=== PATIENT | female | born 1955 | race Caucasian/White ===

== ENCOUNTER → 2018-01-22 13:14 | Outpatient (CLI) | payer OTHER, SELFPAY ==
--- NOTE | 2018-01-22 13:17 | BI_ITS ---
MAMMOGRAPHY - BILATERAL SCREENING REASON FOR EXAM: Female, 62 years old. Routine annual screening examination. PERTINENT HISTORY: Non-contributory. TECHNIQUE: Digital bilateral breast jessica (3D mammographic acquisition) in the CC and MLO projections. 2-D mediolateral oblique (MLO) and craniocaudad (CC) views of both breasts were obtained. CAD: Full Field Digital Mammography with Computer Added Detection was performed. COMPARISON: Comparison is made with prior study dated January 04, 2017 and December 24, 2014. FINDINGS: Breast Composition: There are scattered areas of fibroglandular density. There are no dominant masses or suspicious calcifications. No other significant abnormalities are identified. There has been no significant change since the prior study. BI/SCREENING MAMM (CAD), BILAT IMPRESSION: Stable bilateral screening mammogram. Yearly follow-up mammogram recommended. (A) ASSESSMENT CATEGORY: BIRADS Category 1: Negative. A letter regarding these results will be sent to the patient by the facility within 30 days. Approximately 10% of breast cancers are not detected by mammography. A normal mammogram should not delay biopsy of a clinically suspicious abnormality. [id number] Electronically Signed: Antonio Crowell MD at 11:22 EDT Tel [phone], Service support ,
== END ==
PROVIDERS: Family Provider Family Medicine; PCP Family Medicine; Visit Provider Nurse Practitioner Adult Health
DX: Z12.31 Encounter for screening mammogram for malignant neoplasm of breast (principal)
CPT/HCPCS: 77063; 77067

== ENCOUNTER → 2019-01-09 09:33 | Outpatient (CLI) | payer OTHER, SELFPAY ==
[2019-01-09 12:53] LABS: Anion Gap 7 (5-15); BUN 11 mg/dL (7-18); Calcium,Total 8.6 mg/dL (8.5-10.1); Chloride 108 mmol/L (98-107); Cholesterol 196 mg/dL (200); Creatinine, Serum 0.74 mg/dL (0.55-1.02); EST Glomerular Filtration Rate 85 mL/min (>60); Est Glom Filt Rate - Afr Amer 103 mL/min (>60); Glucose 81 mg/dL (74-106); High Density Lipoprotein 85 mg/dL; Potassium 4.1 mmol/L (3.5-5.1); Sodium Level 142 mmol/L (136-145); Triglycerides 58 mg/dL; Very Low Density Lipoprotein 12 mg/dL (5-40)
== END ==
PROVIDERS: Family Provider Family Medicine; PCP Family Medicine; Referring Provider Family Medicine; Visit Provider Nurse Practitioner Adult Health
DX: Z13.1 Encounter for screening for diabetes mellitus (principal); Z13.220 Encounter for screening for lipoid disorders
CPT/HCPCS: 36415; 80048; 80061

== ENCOUNTER → 2019-02-04 07:30 | Outpatient (CLI) | payer OTHER, SELFPAY ==
--- NOTE | 2019-02-04 07:33 | BI_ITS ---
MAMMOGRAPHY - BILATERAL SCREENING 3-D TOMOSYNTHESIS REASON FOR EXAM: Female, 63 years old. Bilateral Screening 3-D tomosynthesis PERTINENT HISTORY: No significant family history. TECHNIQUE: 2-D mammograms and 3-D Tomosynthesis of the breast (s) were performed. CAD was performed. COMPARISON: January 22, 2018, January 04, 2017 FINDINGS: The breast composition is almost entirely fat. Scattered benign calcifications are seen. No dense spiculated masses or suspicious microcalcifications are identified. No architectural distortion is identified. There is no skin thickening or retraction. There has been no significant change since the prior study. BI/SCREEN MAMM (CAD) W/CASSI BILAT IMPRESSION: No mammographic signs of malignancy. Routine yearly mammograms recommended. ASSESSMENT CATEGORY: BIRADS Category 1: Negative. A letter regarding these results will be sent to the patient by the facility within 30 days. FOLLOW UP RECOMMENDATION: Yearly follow up mammogram recommended. (A) Approximately 10% of breast cancers are not detected by mammography. A normal mammogram should not delay biopsy of a clinically suspicious abnormality. Electronically Signed: Speedy Manning MD at 11:00 EDT , Service support ,
== END ==
PROVIDERS: Family Provider Family Medicine; PCP Family Medicine; Referring Provider Nurse Practitioner Adult Health; Visit Provider Nurse Practitioner Adult Health
DX: Z12.31 Encounter for screening mammogram for malignant neoplasm of breast (principal)
CPT/HCPCS: 77063; 77067

== ENCOUNTER → 2020-02-19 07:27 | Outpatient (CLI) | payer OTHER, SELFPAY ==
--- NOTE | 2020-02-19 07:31 | BI_ITS ---
MAMMOGRAPHY - BILATERAL SCREENING REASON FOR EXAM: Female, 64 years old. Routine annual screening examination. PERTINENT HISTORY: Non-contributory. TECHNIQUE: Digital bilateral breast cassi (3D mammographic acquisition) in the CC and MLO projections. 2-D mediolateral oblique (MLO) and craniocaudad (CC) views of both breasts were obtained. CAD: Full Field Digital Mammography with Computer Added Detection was performed. COMPARISON: Comparison is made with prior study dated February 04, 2019 and January 22, 2018. FINDINGS: Breast Composition: The breasts are almost entirely fatty. There are no dominant masses or suspicious calcifications. Stable small benign-appearing bilateral axillary lymph nodes. No other significant abnormalities are identified. There has been no significant change since the prior study. BI/SCREEN MAMM (CAD) W/CASSI BILAT IMPRESSION: Stable bilateral screening mammogram. Yearly follow-up mammogram recommended. (A) ASSESSMENT CATEGORY: BIRADS Category 2: Benign. A letter regarding these results will be sent to the patient by the facility within 30 days. Approximately 10% of breast cancers are not detected by mammography. A normal mammogram should not delay biopsy of a clinically suspicious abnormality. [id number] Electronically Signed: Antonio Crowell, at 8:29 EDT , Service support ,
== END ==
PROVIDERS: PCP Family Medicine; Visit Provider Family Medicine
DX: Z12.31 Encounter for screening mammogram for malignant neoplasm of breast (principal)
CPT/HCPCS: 77063; 77067

== ENCOUNTER → 2021-03-07 15:48 | Outpatient (CLI) | payer MEDICARE, SELFPAY ==
--- NOTE | 2021-03-07 16:00 | BD_ITS ---
STUDY: DUAL ENERGY X-RAY ABSORPTIOMETRY / DXA REASON FOR EXAM: Female, 65 years old. Z78.0. Patient is postmenopausal. TECHNIQUE: Bone Mineral Density (BMD) measurements of lumbar spine and bilateral hips were obtained. COMPARISON: Comparison is made with prior examination dated 08/30/2011. FINDINGS: Lumbar Spine (L1-L4): g/cm2 (0.807) / T-score (-2.2) / Z-score (-0.4) Findings are suggestive of osteopenia with a high fracture risk. Left Femur Total: g/cm2 (0.843) / T-score (-0.8) / Z-score (0.4) Left Femoral Neck: g/cm2 (0.600) / T-score (-2.2) / Z-score (-0.7) Right Femur Total: g/cm2 (0.778) / T-score (-1.3) / Z-score (-0.1) Right Femoral Neck: g/cm2 (0.600) / T-score (-2.2) / Z-score (-0.7) The T-Scores on the most recent prior examination were: Lumbar Spine (L1-L4): There has been worsening of bone density since the previous examination. Left Femur Total: which represents a worsening of 5.1%. Right Femur Total: which represents a worsening of 6.7%. BD/Dexa Bone Density Study IMPRESSION: The patient is considered as outlined below according to World Som Organization (WHO) criteria with a high fracture risk. There has been worsening of bone density since the previous examination. Reference Information: The T-score is the number of standard deviations above or below the standard which is normal for young adults at their peak bone mineral density. The World Health Organization (WHO) interprets the T-scores as follows: Above -1 Normal bone density Between -1 and -2.5 Osteopenia Equal to / or below -2.5 Osteoporosis As a practical clinical guideline, osteopenia may be graded as follows: Mild -1 through -1.5 Moderate -1.6 through -2.0 Severe -2.1 through -2.4 The Z-score is the number of standard deviations above or below age-matched controls. A Z-score of less than -1.5 would be considered abnormal. References: 1. NIH Osteoporosis and Related Bone Diseases www osteo.org 2. International Society for Clinical Densitometry www iscd.org 3. National Osteoporosis Foundation www nof.org Electronically Signed: Antonio Crowell MD at 21:51 EDT , Service support ,
--- NOTE | 2021-03-07 16:16 | BI_ITS ---
MAMMOGRAPHY - BILATERAL SCREENING REASON FOR EXAM: Female, 65 years old. Routine annual screening examination. PERTINENT HISTORY: Non-contributory. TECHNIQUE: Digital bilateral breast cassi (3D mammographic acquisition) in the CC and MLO projections. 2-D mediolateral oblique (MLO) and craniocaudad (CC) views of both breasts were obtained. CAD: Full Field Digital Mammography with Computer Added Detection was performed. COMPARISON: Comparison is made with prior study dated 02/19/2020 and 02/04/2019 FINDINGS: Breast Composition: The breasts are almost entirely fatty. There are no dominant masses or suspicious calcifications. No other significant abnormalities are identified. There has been no significant change since the prior study. BI/SCRN MAMM (CAD)W/CASSI BILAT IMPRESSION: Stable bilateral screening mammogram. Yearly follow-up mammogram recommended. (A) ASSESSMENT CATEGORY: BIRADS Category 1: Negative. A letter regarding these results will be sent to the patient by the facility within 30 days. Approximately 10% of breast cancers are not detected by mammography. A normal mammogram should not delay biopsy of a clinically suspicious abnormality. [id number] Electronically Signed: Antonio Crowell MD at 8:04 EDT , Service support ,
== END ==
PROVIDERS: PCP Family Medicine; Referring Provider Family Medicine; Visit Provider Family Medicine
DX: Z12.31 Encounter for screening mammogram for malignant neoplasm of breast (principal); Z78.0 Asymptomatic menopausal state
CPT/HCPCS: 77063; 77067; 77080

== ENCOUNTER → 2021-03-22 08:59 | Outpatient (CLI) | payer MEDICARE, SELFPAY ==
[2021-03-22 10:54] LABS: AST(SGOT) 16 U/L (15-37); Alanine Aminotransfer ALT/SGPT 31 U/L (13-56); Albumin, Serum 3.6 g/dL (3.2-5.0); Alkaline Phosphatase 78 U/L (45-117); Anion Gap 6 (5-15); BUN 11 mg/dL (7-18); BUN/Creat Ratio 14.7 RATIO (10-20); Calcium,Total 8.9 mg/dL (8.5-10.1); Chloride 111 mmol/L (98-107); Creatinine, Serum 0.75 mg/dL (0.55-1.02); EST Glomerular Filtration Rate 83 mL/min (>60); Est Glom Filt Rate - Afr Amer 100 mL/min (>60); Globulin 3.6 g/dL (2.2-4.2); Glucose 87 mg/dL (74-106); Potassium 4.1 mmol/L (3.5-5.1); Protein, Total 7.2 g/dL (6.4-8.2); Sodium Level 143 mmol/L (136-145)
[2021-03-22 11:28] LABS: Vitamin D,25 Hydroxy 59.9 ng/mL
== END ==
PROVIDERS: PCP Family Medicine; Referring Provider Family Medicine; Visit Provider Family Medicine
DX: M85.80 Other specified disorders of bone density and structure, unspecified site (principal)
CPT/HCPCS: 36415; 80053; 82306

== ENCOUNTER → 2022-02-15 | Outpatient (CLI) | payer MEDICARE, SELFPAY ==
[2022-02-15 10:20] LABS: Anion Gap 3 (5-15); BUN 11 mg/dL (7-18); BUN/Creat Ratio 13.7 RATIO (10-20); Calcium,Total 9.2 mg/dL (8.5-10.1); Chloride 112 mmol/L (98-107); EST Glomerular Filtration Rate 76 mL/min (>60); Est Glom Filt Rate - Afr Amer 92 mL/min (>60); Glucose 96 mg/dL (74-106); Potassium 4.3 mmol/L (3.5-5.1); Sodium Level 143 mmol/L (136-145)
== END | disposition home or self-care (01) ==
LOC: MFPLAB 08:52
PROVIDERS: Nurse Practitioner Family; PCP Family Medicine; Visit Provider Family Medicine
DX: Z13.1 Encounter for screening for diabetes mellitus (principal)
CPT/HCPCS: 80048

== ENCOUNTER → 2022-03-09 | Outpatient (CLI) | payer MEDICARE, SELFPAY ==
--- NOTE | 2022-03-09 08:36 | BI_ITS ---
MAMMOGRAPHY - BILATERAL SCREENING REASON FOR EXAM: Female, 66 years old. Routine annual screening examination. PERTINENT HISTORY: Non-contributory. TECHNIQUE: Digital bilateral breast cassi (3D mammographic acquisition) in the CC and MLO projections. 2-D mediolateral oblique (MLO) and craniocaudad (CC) views of both breasts were obtained. CAD: Full Field Digital Mammography with Computer Added Detection was performed. COMPARISON: Comparison is made with prior study dated 03/07/2021 and 02/19/2020. FINDINGS: Breast Composition: The breasts are almost entirely fatty. There are no dominant masses or suspicious calcifications. Stable small benign-appearing bilateral axillary lymph nodes. No other significant abnormalities are identified. There has been no significant change since the prior study. BI/SCRN MAMM (CAD)W/CASSI BILAT IMPRESSION: Stable bilateral screening mammogram. Yearly follow-up mammogram recommended. (A) ASSESSMENT CATEGORY: BIRADS Category 2: Benign. A letter regarding these results will be sent to the patient by the facility within 30 days. Approximately 10% of breast cancers are not detected by mammography. A normal mammogram should not delay biopsy of a clinically suspicious abnormality. [id number] Electronically Signed: Antonio Crowell MD at 10:25 EDT ,
== END | disposition home or self-care (01) ==
LOC: OPBI 08:35
PROVIDERS: PCP Family Medicine; Visit Provider Nurse Practitioner Family
DX: Z12.31 Encounter for screening mammogram for malignant neoplasm of breast (principal)
CPT/HCPCS: 77063; 77067

== ENCOUNTER → 2023-04-11 | Outpatient (CLI) | payer MEDICARE, OTHER, SELFPAY ==
[2023-04-11 12:04] LABS: Absolute Lymphocyte Count 1.28 X10^3/uL (0.83-4.51); Absolute Neutrophil Count 2.1 X10^3/uL (2.0-7.7); Basophil# 0.02 X10^3/uL; Basophil% 0.5 % (0-1); Eosinophil# 0.12 X10^3/uL; Eosinophils% 3.1 % (0-5); Hematocrit 46.1 % (37-47); Hemoglobin 14.9 g/dL (12.0-15.0); Lymphocyte # 1.28 X10^3/ul (0.83-4.51); Lymphocyte % 33.5 % (19-41); Mean Corp Hgb Conc 32.3 g/dL (32-36); Mean Corpuscular Hgb 29.9 pg (27.0-32.0); Mean Corpuscular Volume 92.6 fL (81-99); Mean Platelet Vol. 8.9 fl (6.2-12.0); Monocyte% 7.9 % (0-10); NRBC Flagged by Analyzer 0 % (0-5); Neutrophil # 2.09 X10^3/uL (2.7-7.7); Neutrophil % 54.7 % (47-70); Platelet Count 230 K/mm3 (150-450); RBC Distribution Width CV 13.4 % (11.6-14.6); RBC Distribution Width SD 45.9 fl (35.1-43.9); Red Blood Count 4.98 M/mm3 (4.2-5.4); White Blood Count 3.8 K/mm3 (4.4-11.0)
[2023-04-11 12:28] LABS: AST(SGOT) 14 U/L (15-37); Alanine Aminotransfer ALT/SGPT 22 U/L (13-56); Albumin, Serum 3.7 g/dL (3.2-5.0); Alkaline Phosphatase 83 U/L (45-117); Anion Gap 5 (5-15); BUN 12 mg/dL (7-18); BUN/Creat Ratio 15.6 RATIO (10-20); Calcium,Total 8.9 mg/dL (8.5-10.1); Chloride 111 mmol/L (98-107); Cholesterol 206 mg/dL (200); Creatinine, Serum 0.77 mg/dL (0.55-1.02); EST Glomerular Filtration Rate 80 mL/min (>60); Est Glom Filt Rate - Afr Amer 97 mL/min (>60); Globulin 3.7 g/dL (2.2-4.2); Glucose 87 mg/dL (74-106); High Density Lipoprotein 73 mg/dL; Potassium 4.2 mmol/L (3.5-5.1); Protein, Total 7.4 g/dL (6.4-8.2); Sodium Level 141 mmol/L (136-145); T4 Free Direct 1.13 ng/dL (0.76-1.46); Thyroid Stim Hormone (TSH) 2.14 uIU/mL (0.358-3.74); Triglycerides 84 mg/dL; Very Low Density Lipoprotein 17 mg/dL (5-40)
== END | disposition home or self-care (01) ==
LOC: MTLAB 09:29
PROVIDERS: PCP Family Medicine; Visit Provider Family Medicine
DX: M85.80 Other specified disorders of bone density and structure, unspecified site (principal); E04.1 Nontoxic single thyroid nodule; E78.5 Hyperlipidemia, unspecified
CPT/HCPCS: 36415; 80053; 80061; 82306; 84439; 84443; 85025

== ENCOUNTER → 2023-04-18 | Outpatient (CLI) | payer MEDICARE, OTHER, SELFPAY ==
--- NOTE | 2023-04-18 11:34 | US_ITS ---
EXAM: US SOFT TISSUES HEAD AND NECK, THYROID CLINICAL INDICATION: NODULE TECHNIQUE: Grayscale and color doppler imaging was performed of the thyroid gland. COMPARISON: No relevant prior studies available. FINDINGS: LEFT THYROID LOBE: 1.0 cm left thyroid nodule. This nodule is solid or almost completely solid, very hypoechoic, [id number], smoothly marginated and contains punctate echogenic foci. TI-RADS points: 8. The left thyroid lobe measures 4.3 x 1.5 x 1.9 cm. 0.7 cm left thyroid nodule. This nodule is cystic or nearly completely cystic. TI-RADS points: 0. TI-RADS category: TR1. This nodule is benign and no FNA or follow-up is necessary. Additional left thyroid cysts and/or spongiform nodules are present. RIGHT THYROID LOBE: The right thyroid lobe measures 4.7 x 2.4 x 2.2 cm. Right thyroid nodule measuring 2.3 cm. This nodule is solid or almost completely solid, hypoechoic, [id number], smoothly marginated and contains no echogenic foci. TI-RADS points: 4. Posterior right thyroid nodule measuring 0.7 cm. This nodule is mixed cystic and solid, hypoechoic, [id number], smoothly marginated and contains no echogenic foci. TI-RADS points: 3. Additional right thyroid cysts and/or spongiform nodules are present. ISTHMUS: The thyroid isthmus measures 0.3 cm. No thyroid nodules are present. US/Thyroid IMPRESSION: 1. Left thyroid nodule measuring 1 cm. TI-RADS category: TR5. This nodule is highly suspicious. Recommend FNA evaluation. 2. Right thyroid nodule measuring 2.3 cm. TI-RADS category: TR4. This nodule is moderately suspicious. Recommend FNA evaluation. 3. Right thyroid nodule measuring 0.7 cm. TI-RADS category: TR3. This nodule is mildly suspicious but no FNA or follow-up is necessary given the small size of this nodule. Electronically Signed: Raphael Sullivan DO at 22:51 EDT ,
== END | disposition home or self-care (01) ==
LOC: US 11:33
PROVIDERS: PCP Family Medicine; Referring Provider Family Medicine; Visit Provider Family Medicine
DX: E04.1 Nontoxic single thyroid nodule (principal)
CPT/HCPCS: 76536

== ENCOUNTER → 2023-04-25 | Outpatient (CLI) | payer MEDICARE, OTHER, SELFPAY ==
--- NOTE | 2023-04-25 15:11 | BI_ITS ---
MAMMOGRAPHY - BILATERAL SCREENING REASON FOR EXAM: Female, 67 years old. Routine annual screening examination. PERTINENT HISTORY: Non-contributory. TECHNIQUE: Digital bilateral breast cassi (3D mammographic acquisition) in the CC and MLO projections. 2-D mediolateral oblique (MLO) and craniocaudad (CC) views of both breasts were obtained. CAD: Full Field Digital Mammography with Computer Added Detection was performed. COMPARISON: Comparison is made with prior study March 09, 2022 and March 07, 2021. FINDINGS: Breast Composition: The breasts are almost entirely fatty. There are no dominant masses or suspicious calcifications. No other significant abnormalities are identified. There has been no significant change since the prior study. BI/SCRN MAMM (CAD)W/CASSI BILAT IMPRESSION: Stable bilateral screening mammogram. Yearly follow-up mammogram recommended. (A) ASSESSMENT CATEGORY: BIRADS Category 1: Negative. A letter regarding these results will be sent to the patient by the facility within 30 days. Approximately 10% of breast cancers are not detected by mammography. A normal mammogram should not delay biopsy of a clinically suspicious abnormality. [id number] Electronically Signed: Antonio Crowell MD at 8:43 EDT ,
--- NOTE | 2023-04-25 15:18 | BD_ITS ---
STUDY: DUAL ENERGY X-RAY ABSORPTIOMETRY / DXA REASON FOR EXAM: Female, 67 years old. [id number] TECHNIQUE: Bone Mineral Density (BMD) measurements of lumbar spine and bilateral hips were obtained. COMPARISON: Comparison is made with prior study dated March 07, 2021. FINDINGS: Lumbar Spine (L1-L4): g/cm2 (0.815) / T-score (-2.1) / Z-score (-0.2) Findings are suggestive of osteopenia with a high fracture risk. Left Femur Total: g/cm2 (0.800) / T-score (-1.2) / Z-score (0.2) Left Femoral Neck: g/cm2 (0.584) / T-score (-2.4) / Z-score (-0.7) Right Femur Total: g/cm2 (0.768) / T-score (-1.4) / Z-score (-0.1) Right Femoral Neck: g/cm2 (0.576) / T-score (-2.5) / Z-score (-0.8) The T-Scores on the most recent prior examination were: Lumbar Spine (L1-L4): There has been improvement of bone density since the previous examination. Left Femur Total: which represents a worsening of 5.1%. Right Femur Total: which represents a worsening of 1.2%. BD/Dexa Bone Density Study IMPRESSION: The patient is considered osteopenic as outlined below according to World Som Organization (WHO) criteria with a high fracture risk. There has been worsening of bone density since the previous examination. Reference Information: The T-score is the number of standard deviations above or below the standard which is normal for young adults at their peak bone mineral density. The World Health Organization (WHO) interprets the T-scores as follows: Above -1 Normal bone density Between -1 and -2.5 Osteopenia Equal to / or below -2.5 Osteoporosis As a practical clinical guideline, osteopenia may be graded as follows: Mild -1 through -1.5 Moderate -1.6 through -2.0 Severe -2.1 through -2.4 The Z-score is the number of standard deviations above or below age-matched controls. A Z-score of less than -1.5 would be considered abnormal. References: 1. NIH Osteoporosis and Related Bone Diseases www osteo.org 2. International Society for Clinical Densitometry www iscd.org 3. National Osteoporosis Foundation www nof.org Electronically Signed: Antonio Crowell MD at 14:05 EDT ,
== END | disposition home or self-care (01) ==
LOC: OPBD 15:10
PROVIDERS: PCP Family Medicine; Referring Provider Family Medicine; Visit Provider Family Medicine
DX: Z12.31 Encounter for screening mammogram for malignant neoplasm of breast (principal); Z78.0 Asymptomatic menopausal state
CPT/HCPCS: 77063; 77067; 77080

== ENCOUNTER → 2023-05-07 | Outpatient (CLI) | payer MEDICARE, OTHER, SELFPAY ==
--- NOTE | 2023-05-07 | FLU_PTH ---
PATIENT: DEEPA FRAGOSO LOC: [facility] U#:[id number] AGE/SX: 67/F ROOM: RE05/07/[address]: Dr. Marcello Potter MD : 1955 BED: DIS: 05/07/2023 SPEC #: [id number] RECD: 05/07/23 15:00 STATUS: RISHI MARYBETH #: [id number] CITLALLI: 05/07/23 00:[address]: Marcello Potter DEPT: CYTOLOGY RECD BY: Dominick Escalante ENTERED: 05/08/23 09:14 SP TYPE: Fluid OTHR DR: Dr. Feliberto Alvarez MD Tissues: A - Thyroid gland, NOS B - Thyroid gland, NOS C - Thyroid gland, NOS D - Thyroid gland, NOS Procedures: Special Stain Group II Surgery Specimen Level IV Cytospin Fluid HEADER OPERATION: Fine needle aspiration of left and right thyroid PRE-OP DIAGNOSIS: Abnormal ultrasound TISSUE SUBMITTED: A - FNA of left thyroid fluid, B - FNA of left thyroid x10 slides, C - FNA of right thyroid fluid, D - FNA of right thyroid x12 slides DIAGNOSIS CYTOLOGY A. Left thyroid fluid, fine needle aspiration (cytospin and cell block): Negative for malignant cells. B. Left thyroid, fine needle aspiration (smears): Consistent with benign follicular/colloid nodule ([place] Category II). Adequate for evaluation. See comment. C. Right thyroid fluid, fine needle aspiration (cytospin and cell block): Negative for malignant cells. D. Right thyroid, fine needle aspiration (smears): Consistent with benign follicular/colloid nodule ([place] Category II). Adequate for evaluation. See comment. See comment. SJ:rg 05/09/2023 COMMENT Correlation with clinical, radiologic findings and appropriate follow up are necessary. The [place] System for thyroid diagnostic categorization was used in the evaluation of this case. Case has been reviewed in consultation with Dr. Gaston who concurs with the above diagnosis. IDC:AM CYTOLOGY STUDY Slides are reviewed. CYTOLOGY GROSS A - Received is 32 ml of clear fluid labeled with the patient's name and and designated per the requisition as left thyroid. Submitted for cytology preparation including cell block. B - Received are 10 smears labeled with the patient's name and designated per the requisition as left thyroid. Submitted for staining. C - Received is 30 ml of cloudy fluid labeled with the patient's name and and designated per the requisition as right thyroid. Submitted for cytology preparation including cell block. D - Received are 12 smears labeled with the patient's name and designated per the requisition as right thyroid. Submitted for staining. / lui 05/08/2023 TC:5 CPT: 59111 x4, [id number] x2
== END | disposition home or self-care (01) ==
LOC: LABSPEC 15:17
PROVIDERS: PCP Family Medicine; Referring Provider Surgery; Visit Provider Surgery
DX: R93.89 Abnormal findings on diagnostic imaging of other specified body structures (principal)
CPT/HCPCS: 88108; 88305; 88313

== ENCOUNTER → 2023-10-29 | Outpatient (CLI) | payer MEDICARE, OTHER, SELFPAY ==
[2023-10-29 10:31] LABS: Vitamin D,25 Hydroxy 54.3 ng/mL
[2023-10-29 10:34] LABS: AST(SGOT) 17 U/L (15-37); Alanine Aminotransfer ALT/SGPT 24 U/L (13-56); Albumin, Serum 3.5 g/dL (3.2-5.0); Alkaline Phosphatase 67 U/L (45-117); Anion Gap 5 (5-15); BUN 14 mg/dL (7-18); BUN/Creat Ratio 18.8 RATIO (10-20); Chloride 110 mmol/L (98-107); Creatinine, Serum 0.75 mg/dL (0.55-1.02); EST Glomerular Filtration Rate 82 mL/min (>60); Est Glom Filt Rate - Afr Amer 99 mL/min (>60); Globulin 3.6 g/dL (2.2-4.2); Glucose 91 mg/dL (74-106); Protein, Total 7.1 g/dL (6.4-8.2); Sodium Level 141 mmol/L (136-145)
== END | disposition home or self-care (01) ==
LOC: MFPLAB 09:12
PROVIDERS: PCP Family Medicine; Visit Provider Family Medicine
DX: M81.0 Age-related osteoporosis without current pathological fracture (principal)
CPT/HCPCS: 36415; 80053; 82306

== ENCOUNTER → 2024-04-24 | Outpatient (CLI) | payer MEDICARE, OTHER, SELFPAY ==
--- NOTE | 2024-04-24 13:56 | US_ITS ---
ACR Level 3 findings have been noted. An addendum which confirms receipt of the report will follow. INDICATION: nodule EXAMINATION: Ultrasound US Thyroid (eg thyroid, parathyroid, parotid) TECHNIQUE: Rosado scale and color doppler imaging was performed of the thyroid gland. COMPARISON: None. FINDINGS: RIGHT THYROID LOBE: Measures 4.9 x 2.2 x 2 cm. Homogeneous echotexture with normal vascularity. [Contains multiple nodules: - 2.2 cm hypoechoic solid nodule in the midpole -0.9 cm colloid cyst LEFT THYROID LOBE: Measures 4.3 x 1.4 x 1.8 cm. Homogeneous echotexture with normal vascularity. [Multiple nodules: -0.6 cm solid and cystic hypoechoic nodule in the superior pole -0.6 cm hypoechoic solid and cystic nodule in the superior pole 0.9 cm very hypoechoic solid nodule in the midpole with micro-calcifications. ISTHMUS: 0.1 cm. No thyroid nodules are present. US/Thyroid IMPRESSION: Multinodular goiter: -2.2 cm TI-RADS 4 nodule in the right midpole is moderately suspicious. Recommend FNA -0.6 cm TR-3 nodule in the left superior pole is mildly suspicious. Recommend follow-up ultrasound in one year. -0.6 cm TR-3 nodule in the left superior pole is mildly suspicious. Recommend follow-up ultrasound in one year. -0.9 cm TR-5 nodule is highly suspicious. Recommend FNA. Electronically Signed: Daniel Khan MD at 20:57 EDT ,
== END | disposition home or self-care (01) ==
LOC: US 13:56
PROVIDERS: PCP Family Medicine; Referring Provider Family Medicine; Visit Provider Family Medicine
DX: E04.1 Nontoxic single thyroid nodule (principal)
CPT/HCPCS: 76536

== ENCOUNTER → 2024-06-11 | Outpatient (CLI) | payer MEDICARE, OTHER, SELFPAY ==
--- NOTE | 2024-06-11 09:39 | BI_ITS ---
MAMMOGRAPHY - BILATERAL SCREENING REASON FOR EXAM: Female, 68 years old. Routine annual screening examination. PERTINENT HISTORY: Non-contributory. TECHNIQUE: Digital bilateral breast cassi (3D mammographic acquisition) in the CC and MLO projections. 2-D mediolateral oblique (MLO) and craniocaudad (CC) views of both breasts were obtained. CAD: Full Field Digital Mammography with Computer Added Detection was performed. COMPARISON: Comparison is made with prior study April 25, 2023 and March 09, 2022. FINDINGS: Breast Composition: The breasts are almost entirely fatty. There are no dominant masses or suspicious calcifications. No other significant abnormalities are identified. There has been no significant change since the prior study. BI/SCRN MAMM (CAD)W/CASSI BILAT IMPRESSION: Stable bilateral screening mammogram. Yearly follow-up mammogram recommended. (A) ASSESSMENT CATEGORY: BIRADS Category 1: Negative. A letter regarding these results will be sent to the patient by the facility within 30 days. Approximately 10% of breast cancers are not detected by mammography. A normal mammogram should not delay biopsy of a clinically suspicious abnormality. [id number] Electronically Signed: Antonio Crowell MD at 10:54 EDT ,
== END | disposition home or self-care (01) ==
LOC: OPBI 09:39
PROVIDERS: PCP Family Medicine; Referring Provider Family Medicine; Visit Provider Family Medicine
DX: Z12.31 Encounter for screening mammogram for malignant neoplasm of breast (principal)
CPT/HCPCS: 77063; 77067

== ENCOUNTER → 2025-05-05 | Outpatient (CLI) | payer MEDICARE, OTHER, SELFPAY ==
[2025-05-05 16:15] LABS: AST(SGOT) 23 U/L (<=31); Alanine Aminotransfer ALT/SGPT 35 U/L (<=34); Albumin, Serum 4.1 g/dL (3.4-4.8); Alkaline Phosphatase 58 U/L (35-104); Anion Gap 11 (5-15); BUN 12 mg/dL (4-19); BUN/Creat Ratio 15.3 RATIO (10-20); Calcium,Total 9.0 mg/dL (7.6-11.0); Carbon Dioxide 22.4 mmol/L (21.0-32.0); Chloride 107 mmol/L (98-108); Globulin 2.8 g/dL (2.2-4.2); Glucose 88 mg/dL (70-99); Potassium 4.2 mmol/L (3.3-5.1); Vitamin D,25 Hydroxy 53.8 ng/mL (30-100)
== END | disposition home or self-care (01) ==
LOC: MFPLAB 11:44
PROVIDERS: PCP Family Medicine; Visit Provider Family Medicine
DX: M81.0 Age-related osteoporosis without current pathological fracture (principal)
CPT/HCPCS: 36415; 80053; 82306

== ENCOUNTER → 2025-05-10 | Outpatient (CLI) | payer MEDICARE, OTHER, SELFPAY ==
--- OUTSIDE RECORDS SUMMARY | 2024-06-01 14:00 | XMS RPT_ITS ---
Author Name Auto Generated Organization [facility] Care Team Providers Care Alarm Adjuster Name Role Phone DAMARIS SOLANO Attending Unavailable SVEN AQUINO Referring Unavailable SVEN AQUINO Primary Care Unavailable PROBLEMS No Problem Records Found PROCEDURES No Procedure Records Found RESULTS PROGRESS Observed: 06/03/2024 12:42 PM Status: COMPLETED Source: [facility] HNO ID: [id number] Author: DAMARIS SOLANO MD Service: ? Author Type: Physician Type: Progress Notes Filed: 06/03/2024 12:55 Note Text: Subjective: Last saw the patient on 05/14/2023. She had just undergone a fine-needle aspiration of both the left and right side thyroid nodules which were completed on 05/07/2023. The pathology report came back as a benign follicular nodule and was adequate for evaluation. She presents again today with a repeat ultrasound of her thyroid gland which was completed at [place] on 04/24/2024. This showed a 2.2 cm hypoechoic nodule in the midpole on the right side and a 9 mm solid nodule on the left side with several other cystic components In 2022 the right side had a 2.3 cm solid nodule as well as a 7 mm left-sided thyroid nodule. Patient is not experiencing any neck pain night sweats or difficulty talking. Objective:Blood pressure 128/90, pulse 115, temperature 36.6 ?C (97.9 ?F), resp. rate 18, height 157.5 cm (5' 2), weight 86.8 kg (191 lb 6.4 oz), last menstrual period 02/15/2007, SpO2 95%. Neck is supple no hard palpable nodules are identified no carotid bruits no lymphadenopathy. Assessment:Multinodular goiter (primary encounter diagnosis) Plan: At this point I do not think any further fine-needle aspirations need to be done repeat thyroid ultrasounds would be sufficient. CNOV Observed: 06/01/2024 2:00 PM Status: COMPLETED Source: [facility] Office Visit (GENSWS) RICHMONDDEEPA Rigo ([id number]) 1955 F Date Time Provider Department 06/01/24 2:00 PM DAMARIS SOLANO GENSWS During your visit today, we recorded the following information about you: Temperature Pulse Respiration Blood pressure 97.9 degrees 115/minute 18/minute 128/90 Weight Height Last Period 86.8 kg 1.575 m 02/15/07 Ashlyn Jensen RN 06/01/2024 2:03 PM Signed REVIEW OF SYSTEMS: General: The patient denies fatigue, denies weight loss, denies weight gain, denies feeling hot, and denies feelings of cold. Eyes: The patient denies glaucoma, denies eye injury/surgery, wears glasses or contacts. Ear/Nose/Throat: The patient denies allergies, denies hayfever, denies ear infections, and denies bloody noses. Cardiovascular: The patient denies chest pain, denies heart disease, denies high blood pressure,denies cardiac stent, denies prior heart attack, denies irregular heart beat, denies high cholesterol, denies poor circulation, denies heart failure, other cardiac issues, denies claudication, denies cold feet, denies peripheral arterial stent. Respiratory: The patient denies tuberculosis, denies pneumonia, denies frequent cough, denies pulmonary embolism, denies shortness of breath, and denies coughing up blood. Gastrointestinal: The patient denies difficulty swallowing, denies acid reflux, denies ulcers, denies vomiting, denies jaundice/hepatitis, denies gallbladder problems, denies black or tarry stools, denies hemorrhoids, denies bleeding from rectum, denies diverticulitis, denies constipation, denies diarrhea, denies loss of stool control, and denies hernias. Kidney/Bladder: The patient denies kidney stones, denies urine infections, and denies bloody urine. Skin: The patient denies a history of skin cancer, denies bleeding/changing moles, and denies a history of skin rash. Neurologic: The patient denies a history of epilepsy/convulsions, denies headaches, denies head/spinal injuries, and denies stroke/TIA. Psychiatric: The patient denies psychiatric medications, denies depression, and denies voices, denies substance abuse. Endocrine: The patient denies thyroid disorders, denies diabetes, and denies hormonal problems. Hematologic: The patient denies a history of bruising, denies bleeding, and denies anemia, denies blood clots. Infections: The patient denies a history of measles and mumps, denies rheumatic fever, and denies sexually transmitted diseases. Musculoskeletal: The patient denies back pain/injury, denies back problems, denies sciatica, denies knee/foot trouble, denies arthritis, or denies gout. When was patient's last Mammogram screening? 2022 Last Colonoscopy: 2015 NATHEN Brown Daniel P, MD 06/03/2024 12:55 PM Signed Subjective: Last saw the patient on 05/14/2023. She had just undergone a fine-needle aspiration of both the left and right side thyroid nodules which were completed on 05/07/2023. The pathology report came back as a benign follicular nodule and was adequate for evaluation. She presents again today with a repeat ultrasound of her thyroid gland which was completed at [place] on 04/24/2024. This showed a 2.2 cm hypoechoic nodule in the midpole on the right side and a 9 mm solid nodule on the left side with several other cystic components In 2022 the right side had a 2.3 cm solid nodule as well as a 7 mm left-sided thyroid nodule. Patient is not experiencing any neck pain night sweats or difficulty talking. Objective:Blood pressure 128/90, pulse 115, temperature 36.6 ?C (97.9 ?F), resp. rate 18, height 157.5 cm (5' 2), weight 86.8 kg (191 lb 6.4 oz), last menstrual period 02/15/2007, SpO2 95%. Neck is supple no hard palpable nodules are identified no carotid bruits no lymphadenopathy. Assessment:Multinodular goiter (primary encounter diagnosis) Plan: At this point I do not think any further fine-needle aspirations need to be done repeat thyroid ultrasounds would be sufficient. Referring Provider: SVEN AQUINO [[id number]] Allergies As of Date: 06/01/2024 Noted Allergy Reaction ERYTHROMYCIN 10/14/2015 8 - GI Upset Date Reviewed: 06/01/2024 Reviewed by: Ashlyn Jensen RN - Fully Assessed Reason for Visit: Thyroid Nodules [Other] Primary Visit Diagnosis:Multinodular goiter [E04.2] Prescriptions as of 06/03/2024 - famotidine (PEPCID) 40 mg tablet Take 40 mg by mouth daily at bedtime. - alendronate (FOSAMAX) 70 mg tablet Take 70 mg by mouth one time a week. In AM with cup of water on empty stomach. Nothing else by mouth and stay upright for 30 min. - calcium carbonate/vitamin D2 ([id number]-L ORAL) Take 1 tablet by mouth once daily. - cholecalciferol (VITAMIN D3) 1,000 unit tab tablet Take 1,000 Units by mouth once daily. Problem List As Of Date: 06/01/2024 (None) Visit Notes: >> Ashlyn Jensen RN Mon Jun 01, 2024 2:02 PM Status: Signed REVIEW OF SYSTEMS: General: The patient denies fatigue, denies weight loss, denies weight gain, denies feeling hot, and denies feelings of cold. Eyes: The patient denies glaucoma, denies eye injury/surgery, wears glasses or contacts. Ear/Nose/Throat: The patient denies allergies, denies hayfever, denies ear infections, and denies bloody noses. Cardiovascular: The patient denies chest pain, denies heart disease, denies high blood pressure,denies cardiac stent, denies prior heart attack, denies irregular heart beat, denies high cholesterol, denies poor circulation, denies heart failure, other cardiac issues, denies claudication, denies cold feet, denies peripheral arterial stent. Respiratory: The patient denies tuberculosis, denies pneumonia, denies frequent cough, denies pulmonary embolism, denies shortness of breath, and denies coughing up blood. Gastrointestinal: The patient denies difficulty swallowing, denies acid reflux, denies ulcers, denies vomiting, denies jaundice/hepatitis, denies gallbladder problems, denies black or tarry stools, denies hemorrhoids, denies bleeding from rectum, denies diverticulitis, denies constipation, denies diarrhea, denies loss of stool control, and denies hernias. Kidney/Bladder: The patient denies kidney stones, denies urine infections, and denies bloody urine. Skin: The patient denies a history of skin cancer, denies bleeding/changing moles, and denies a history of skin rash. Neurologic: The patient denies a history of epilepsy/convulsions, denies headaches, denies head/spinal injuries, and denies stroke/TIA. Psychiatric: The patient denies psychiatric medications, denies depression, and denies voices, denies substance abuse. Endocrine: The patient denies thyroid disorders, denies diabetes, and denies hormonal problems. Hematologic: The patient denies a history of bruising, denies bleeding, and denies anemia, denies blood clots. Infections: The patient denies a history of measles and mumps, denies rheumatic fever, and denies sexually transmitted diseases. Musculoskeletal: The patient denies back pain/injury, denies back problems, denies sciatica, denies knee/foot trouble, denies arthritis, or denies gout. When was patient's last Mammogram screening? 2022 Last Colonoscopy: 2015 Ashlyn Jensen RN Letter Text Encounter Status:Closed by DAMARIS SOLANO on 06/03/24 ALLERGIES DATE TYPE / CODE NAME / CODE REACTION SEVERITY SOURCE 10/14/2015 DRUG/[id number](SNOM ED CT) ERYTHROMYCIN GI UPSET [facility] ENCOUNTERS ADMIT/DISCHARGE ACCOUNT NUMBER ADMITTING ENCOUNTER CLASS LOC ATION SOURCE 06/01/2024/ [id number] [facility] PAYERS ENCOUNTER GUARANTOR PAYER SUBSCRIBER SOURCE 06/01/2024 Primary Insuranc e:MEDICARE A AND BPolicy Number: [id number] Date:[id number] Name:Philip VIRAMONTESB: [id number] ANNETTE VELIZ [id number] [facility] 06/01/2024 Secondary Insura nce:[facility] AARP SUPPLEMENTPolicy Number: [id number] Date:[id number] Name:Junito GARCIA: [id number] [place] [address] [facility]
--- NOTE | 2025-05-10 12:43 | US_ITS ---
PROCEDURE: THYROID 05/10/2025 REASON FOR EXAM: Known nodules, follow-up TECHNIQUE: Procedure Code: USTHY Modality: US Procedure: THYROID COMPARISON: 04/24/2024, 04/18/2023 FINDINGS: Right thyroid lobe size: 4.1 x 2.1 x 1.8 cm Left thyroid lobe size: 4.1 x 1.5 x 1.1 cm Isthmus: 0.1 cm Background parenchymal echotexture is homogeneous. Nodules: 1. Lobe: Right, Location: Mid, Size: 2.3 x 1.9 x 1.4 cm, Stability: Stable Composition: Solid or almost completely solid (+2) Echogenicity: Hypoechoic (+2) Margin: Smooth (+0) Shape: Wider than tall (+0) Echogenic Foci: None (+0) TI-RADS: <2 = TR 1 * 2 = TR 2 * 3 = TR 3 * 4-6 = TR 4 * >6 = TR 5 2. Lobe: Right, Location: Lower, Size: 0.4 x 0.5 x 0.4 cm, Stability: Stable Composition: Cystic or mostly cystic (+0) Echogenicity: Anechoic (+0) Margin: Smooth (+0) Shape: Wider than tall (+0) Echogenic Foci: None (+0) TI-RADS: <2 = TR 1 * 2 = TR 2 * 3 = TR 3 * 4-6 = TR 4 * >6 = TR 5 3. Lobe: Left, Location: Upper, Size: 0.6 x 0.4 x 0.4 cm, Stability: Stable Composition: Mixed cystic and solid (+1) Echogenicity: Anechoic (+0) Margin: Smooth (+0) Shape: Wider than tall (+0) Echogenic Foci: None (+0) TI-RADS: <2 = TR 1 * 2 = TR 2 * 3 = TR 3 * 4-6 = TR 4 * >6 = TR 5 4. Lobe: Left, Location: Mid, Size: 0.8 x 0.5 x 0.7 cm, Stability: Stable Composition: Mixed cystic and solid (+1) Echogenicity: Hypoechoic (+2) Margin: Smooth (+0) Shape: Wider than tall (+0) Echogenic Foci: None (+0) TI-RADS: <2 = TR 1 * 2 = TR 2 * 3 = TR 3 * 4-6 = TR 4 * >6 = TR 5 5. Lobe: Left, Location: Lower, Size: 0.6 x 0.4 x 0.5 cm, Stability: Stable Composition: Mixed cystic and solid (+1) Echogenicity: Hypoechoic (+2) Margin: Smooth (+0) Shape: Wider than tall (+0) Echogenic Foci: None (+0) TI-RADS: <2 = TR 1 * 2 = TR 2 * 3 = TR 3 * 4-6 = TR 4 * >6 = TR 5 No new suspicious mass or nodule, no suspicious adenopathy US/Thyroid IMPRESSION: Stable homogeneous thyroid gland with bilateral nodules. Largest is solid, hyp oechoic and in the mid right lobe which should undergo FNA unless previously performed. Remaining nodules are predominantly solid and cystic an unchanged. These can b e followed sonographically RECOMMENDATION: Based on most suspicious nodule. Nodule size = largest diameter Only evaluate nodule if =>5 mm. Growth > 20% in 2 dimensions = worsening. Follow up to 4 nodules. Recommend biopsy for no more than 2 nodules. Reading Location: [id number]
== END | disposition home or self-care (01) ==
LOC: US 12:40
PROVIDERS: PCP Family Medicine; Referring Provider Family Medicine; Visit Provider Family Medicine
DX: E04.1 Nontoxic single thyroid nodule (principal)
CPT/HCPCS: 76536

== ENCOUNTER → 2025-06-15 | Outpatient (CLI) | payer MEDICARE, OTHER, SELFPAY ==
--- NOTE | 2025-06-15 06:53 | BI_ITS ---
EXAM: SCRN MAMM (CAD)W/CASSI BILAT DATE: N/A CLINICAL HISTORY: F, Age 69 y/o , SCREENING No family history. TECHNIQUE: Procedure Code: [id number] Modality: MG Procedure: SCRN MAMM (CAD)W/CASSI BILAT COMPARISON: Prior exam(s) dated June 11, 2024.. FINDINGS: TISSUE DENSITY: The breasts are almost entirely fatty. Bilateral Breast Mammographic Findings: No significant masses, calcifications or other abnormalities are identified. Stable small benign-appearing axillary lymph nodes. No suspicious masses, areas of developing architectural distortion, or suspicious calcifications. There has been no significant interval change. BI/SCRN MAMM (CAD)W/CASSI BILAT IMPRESSION: Stable bilateral screening mammogram. OVERALL FINAL ASSESSMENT BI-RADS 2: BENIGN RECOMMENDATION: Routine annual follow-up in 1 Year Additional Recommendation none A letter with findings and recommendations will be mailed to the patient. Reading Location: [facility]
--- NOTE | 2025-06-15 06:56 | BD_ITS ---
PROCEDURE: DEXA BONE DENSITY STUDY 06/15/2025 REASON FOR EXAM: F, age 69 y/o . Postmenopausal. TECHNIQUE: Procedure Code: BDDBD Modality: DX Procedure: DEXA BONE DENSITY STUDY COMPARISON: April 25, 2023. FINDINGS: BMD and T-SCORES Lumbar spine: 0.801 g/cm2, T-score -2.3 Levels: L1 through L4 Change from prior: Improvement of 0.1%. Left femoral neck: 0.597 g/cm2, T-score -2.3 Femoral neck comparison data not recommended for monitoring change. Left total hip: 0.849 g/cm2, T-score -0.8 Change from prior: Improvement of 6.1%. Right femoral neck: 0.583 g/cm2, T-score -2.4 Femoral neck comparison data not recommended for monitoring change. Right total hip: 0.778 g/cm2, T-score -1.3 Change from prior: Improvement of 1.2%. The World Health Organization has defined the following categories based on bone density: Normal bone density: T-score equal to or greater than -1.0 Osteopenia: T-score between -1.0 and -2.5 Osteoporosis: T-score equal to or less than -2.5 FRAX (or Comparable) Fracture Risk Assessment: 10 Year Probability of Fracture: Major Osteoporotic Fracture: 12% Hip Fracture: 2.6% (Note: FRAX is not to be reported in setting of normal range bone density, osteoporosis on DEXA, known history of osteoporosis, prior osteoporotic hip or vertebral fracture, or for any patient undergoing pharmacological treatment for bone loss.) The National Osteoporosis Foundation (NOF) recommends pharmacological treatment for patients with a FRAX 10-year risk of 3% or higher for a hip fracture, or 20% or higher for a major osteoporotic fracture, to prevent osteoporosis and reduce fracture risk. The patient does meet the pharmacological treatment recommendations for prevention of osteoporosis. BD/Dexa Bone Density Study IMPRESSION: OSTEOPENIA. Recommend follow-up as clinically warranted. Reading Location: [id number]
--- OUTSIDE RECORDS SUMMARY | 2025-06-15 06:59 | XMS RPT_ITS | CCD ---
Author Organization [facility] CliniSymo Care Team Providers Care Baking Powder Mixer Name Role Phone Sven Aquino MD Primary Care Provider MARCELLO POTTER Attending Unavailable SVEN AQUINO Referring Unavailable SVEN AQUINO Primary Care Unavailable Kim STEWART, Dr. Sven Denney Primary Care Physician Dr. Sven Aquino MD Attending Physician Dr. Sven Aquino MD Referring Provider Sven Aquino Attending Unavailable Sven Aquino Primary Care Unavailable Sven Aquino Referring Unavailable Sven Aquino Primary Care Unavailable Sven Aquino Referring Unavailable Sven Aquino Attending Unavailable Sven Aquino Primary Care Unavailable Sven Aquino Attending Unavailable Allergies Allergy Classification Reported Allergen(s) Allergy Type Date of Onset Reaction(s) Facility (2 sources) Erythromycin; Translations: [ERYTHROMYCIN] Drug Allergy 10-14-2015 GI Upset [facility] Medications Current Medications Medication Drug Class(es) Dates Sig (Normalized) Sig (Original) alendronic acid 70 mg oral tablet (1 source) Bisphosphonate take 1 tablet by mouth every week in the morning alendronate (FOSAMAX) 70 mg tablet Take 70 mg by mouth one time a week. In AM with cup of water on empty stomach. Nothing else by mouth and stay upright for 30 min. Active calcium carbonate/vitamin D2 (QOUXAPO-604-E ORAL) (1 source) Start: 05-01-2023 take 1 tablet by mouth once daily calcium carbonate/vitamin D2 ([id number]-419-S ORAL) Take 1 tablet by mouth once daily. 05/01/2023 Active cholecalciferol 0.025 mg oral tablet (1 source) Vitamin D take 1 tablet by mouth once daily cholecalciferol (VITAMIN D3) 1,000 unit tab tablet Take 1,000 Units by mouth once daily. Active famotidine 40 mg oral tablet (1 source) Histamine-2 Receptor Antagonist take 1 tablet by mouth once daily at bedtime famotidine (PEPCID) 40 mg tablet Take 40 mg by mouth daily at bedtime. Active Problems Problem Classification Problem Date Documented Da te Episodic/Chronic Osteoporosis (2 sources) Age-related osteoporosis without current pathological fracture; Translations: [Age-related osteoporosis without current pathological fracture] Onset: 05-14-2025 Chronic Other screening for suspected conditions (not mental disorders or infectious disease) (1 source) Encounter for screening mammogram for malignant neoplasm of breast; Translations: [Encounter for screening mammogram for malignant neoplasm of breast] Onset: 06-11-2025 Episodic Thyroid disorders (2 sources) Multinodular goiter; Translations: [Nontoxic multinodular goiter] Onset: 05-21-2025 06-01-2024 Chronic Results Test Name Value Interpretation Reference Range Facility Thyroidon 05-10-2025 [facility] [address] [place] [address] [id number] Thyroid MR#: [id number] Acct: [id number] Name: DEEPA FRAGOSO Rep #: [id number] : [id number] F 69 From: Hernan La MD PCP: Dr. Sven Aquino MD Status: REG CLI Study: Thyroid Date of Exam: 05/10/25 Exam# [id number] Ordering Dr: Sven Aquino MD PROCEDURE: THYROID 05/10/2025 REASON FOR EXAM: Known nodules, follow-up TECHNIQUE: Procedure Code: USTHY Modality: US Procedure: THYROID COMPARISON: 04/24/2024, 04/18/2023 FINDINGS: Right thyroid lobe size: 4.1 x 2.1 x 1.8 cm Left thyroid lobe size: 4.1 x 1.5 x 1.1 cm Isthmus: 0.1 cm Background parenchymal echotexture is homogeneous. Nodules: 1. Lobe: Right, Location: Mid, Size: 2.3 x 1.9 x 1.4 cm, Stability: Stable Composition: Solid or almost completely solid (+2) Echogenicity: Hypoechoic (+2) Margin: Smooth (+0) Shape: Wider than tall (+0) Echogenic Foci: None (+0) TI-RADS: <2 = TR 1 * 2 = TR 2 * 3 = TR 3 * 4-6 = TR 4 * >6 = TR 5 2. Lobe: Right, Location: Lower, Size: 0.4 x 0.5 x 0.4 cm, Stability: Stable Composition: Cystic or mostly cystic (+0) Echogenicity: Anechoic (+0) Margin: Smooth (+0) Shape: Wider than tall (+0) Echogenic Foci: None (+0) TI-RADS: <2 = TR 1 * 2 = TR 2 * 3 = TR 3 * 4-6 = TR 4 * >6 = TR 5 3. Lobe: Left, Location: Upper, Size: 0.6 x 0.4 x 0.4 cm, Stability: Stable Composition: Mixed cystic and solid (+1) Echogenicity: Anechoic (+0) Margin: Smooth (+0) Shape: Wider than tall (+0) Echogenic Foci: None (+0) TI-RADS: <2 = TR 1 * 2 = TR 2 * 3 = TR 3 * 4-6 = TR 4 * >6 = TR 5 4. Lobe: Left, Location: Mid, Size: 0.8 x 0.5 x 0.7 cm, Stability: Stable Composition: Mixed cystic and solid (+1) Echogenicity: Hypoechoic (+2) Margin: Smooth (+0) Shape: Wider than tall (+0) Echogenic Foci: None (+0) TI-RADS: <2 = TR 1 * 2 = TR 2 * 3 = TR 3 * 4-6 = TR 4 * >6 = TR 5 5. Lobe: Left, Location: Lower, Size: 0.6 x 0.4 x 0.5 cm, Stability: Stable Composition: Mixed cystic and solid (+1) Echogenicity: Hypoechoic (+2) Margin: Smooth (+0) Shape: Wider than tall (+0) Echogenic Foci: None (+0) TI-RADS: <2 = TR 1 * 2 = TR 2 * 3 = TR 3 * 4-6 = TR 4 * >6 = TR 5 No new suspicious mass or nodule, no suspicious adenopathy US/Thyroid IMPRESSION: Stable homogeneous thyroid gland with bilateral nodules. Largest is solid, hypoechoic and in the mid right lobe which should undergo FNA unless previously performed. Remaining nodules are predominantly solid and cystic an unchanged. These can be followed sonographically RECOMMENDATION: Based on most suspicious nodule. Nodule size = largest diameter Only evaluate nodule if =>5 mm. Growth > 20% in 2 dimensions = worsening. Follow up to 4 nodules. Recommend biopsy for no more than 2 nodules. Reading Location: [id number] CC: Dr. Sven Aquino MD Shift Lab Technician: Signed Normal [facility] Anion gap in Serum or Plasma Ordered By: Sven Aquino on 05-05-2025 Anion gap [Moles/Vol] 11 mmol/L 5-15 [facility] BUN/creatinine ratioOrdered By: Sven Aquino on 05-05-2025 Urea nitrogen/Creatinine [Mass ratio] 15.3 mg/mg 10-20 [facility] Bilirubin, totalOrdered By: Sven Aquino on 05-05-2025 Bilirubin [Mass/Vol] 0.38 mg/dL 0.00-1.30 [facility] Carbon dioxide, total [Moles /volume] in Central venous bloodOrdered By: Sven Aquino on 05-05-2025 CO2 [Moles/Vol] 22.4 mmol/L 21.0-32.0 [facility] Chloride assayOrdered By: Sheridan Aquino on 05-05-2025 Chloride [Moles/Vol] 107 mmol/L 98-108 [facility] Comprehensive Metabolic Prof ilon 05-05-2025 Albumin [Mass/Vol] 4.1 g/dL Normal 3.4-4.8 [facility] Comment on above: Order Comment: Order Date: 05/05/25 Order Info: 0786-1 - CMP Performed By: #### L [id number] #### [facility] Laboratory [facility] [place], [address] Albumin/Globulin [Mass ratio] 1.5 {ratio} Normal 0.9-2.4 [facility] Comment on above: Order Comment: Order Date: 05/05/25 Order Info: 0786-1 - CMP Performed By: #### L [id number] #### [facility] Laboratory [address] [place], [address] ALK PHOS 58 U/L Normal 35-104 [facility] Comment on above: Order Comment: Order Date: 05/05/25 Order Info: 0786-1 - CMP Performed By: #### L [id number] #### [facility] [address] [place], [address] ALT [Catalytic activity/Vol] 35 U/L Normal <=34 [facility] Comment on above: Order Comment: Order Date: 05/05/25 Order Info: 0786-1 - CMP Performed By: #### L [id number] #### [facility] [address] [place], [address] AST [Catalytic activity/Vol] 23 U/L Normal <=31 [facility] Comment on above: Order Comment: Order Date: 05/05/25 Order Info: 0786-1 - CMP Performed By: #### L [id number] #### [facility] [address] [place], [address] Bilirubin [Mass/Vol] 0.38 mg/dL Normal 0.00-1.30 [facility] Comment on above: Order Comment: Order Date: 05/05/25 Order Info: 0786-1 - CMP Performed By: #### L [id number] #### [facility] [address] [place], [address] BUN/CRE 15.3 RATIO Normal 10-20 [facility] Comment on above: Order Comment: Order Date: 05/05/25 Order Info: 0786-1 - CMP Performed By: #### L [id number] #### [facility] [address] [place], [address] Calcium [Mass/Vol] 9.0 mg/dL Normal 7.6-11.0 [facility] Comment on above: Order Comment: Order Date: 05/05/25 Order Info: 0786-1 - CMP Performed By: #### L [id number] #### [facility] [address] [place], [address] Chloride [Moles/Vol] 107 mmol/L Normal 98-108 [facility] Comment on above: Order Comment: Order Date: 05/05/25 Order Info: 0786-1 - CMP Performed By: #### L [id number] #### [facility] [address] [place], [address] CO2 [Moles/Vol] 22.4 mmol/L Normal 21.0-32.0 [facility] Comment on above: Order Comment: Order Date: 05/05/25 Order Info: 0786-1 - CMP Performed By: #### L [id number] #### [facility] [address] [place], [address] Creatinine [Mass/Vol] 0.79 mg/dL Normal 0.70-1.20 [facility] Comment on above: Order Comment: Order Date: 05/05/25 Order Info: 0786-1 - CMP Performed By: #### L [id number] #### [facility] [address] [place], [address] GAP 11 Normal 5-15 [facility] Comment on above: Order Comment: Order Date: 05/05/25 Order Info: 0786-1 - CMP Performed By: #### L [id number] #### [facility] [address] [place], [address] GFR/1.73 sq M.predicted among non-blacks MDRD (S/P/Bld) [Vol rate/Area] 81 mL/min/{1.73_m2} Normal >60 [facility] Comment on above: Order Comment: Order Date: 05/05/25 Order Info: 0786-1 - CMP Result Comment: mL/m in/1.73m2 CKD-EPI Creatinine Equation (2020) Performed By: #### L [id number] #### [facility] [address] [place], [address] Globulin (S) [Mass/Vol] 2.8 g/dL Normal 2.2-4.2 [facility] Comment on above: Order Comment: Order Date: 05/05/25 Order Info: 0786-1 - CMP Performed By: #### L [id number] #### [facility] [address] [place], [address] Glucose [Mass/Vol] 88 mg/dL Normal 70-99 [facility] Comment on above: Order Comment: Order Date: 05/05/25 Order Info: 0786-1 - CMP Performed By: #### L [id number] #### [facility] [address] [place], [address] Potassium [Moles/Vol] 4.2 mmol/L Normal 3.3-5.1 [facility] Comment on above: Order Comment: Order Date: 05/05/25 Order Info: 0786-1 - CMP Performed By: #### L [id number] #### [facility] [address] [place], [address] Sodium [Moles/Vol] 141 mmol/L Normal 133-145 [facility] Comment on above: Order Comment: Order Date: 05/05/25 Order Info: 0786-1 - CMP Performed By: #### L [id number] #### [facility] [address] [place], [address] T PROT 6.9 g/dL Normal 5.9-8.4 [facility] Comment on above: Order Comment: Order Date: 05/05/25 Order Info: 0786-1 - CMP Performed By: #### L [id number] #### [facility] [address] [place], [address] Urea nitrogen [Mass/Vol] 12 mg/dL Normal 4-19 [facility] Comment on above: Order Comment: Order Date: 05/05/25 Order Info: 0786-1 - [facility] Performed By: #### L [id number] #### [facility] [address] [place], [address] Glomerular filtration rate ( GFR) estimation/1.73 sq m using serum, plasma, or whole bOrdered By: Sven Aquino on 05-05-2025 GFR/1.73 sq M.predicted among non-blacks MDRD (S/P/Bld) [Vol rate/Area] 81 mL/min/{1.73_m2} >60 [facility] Comment on above: mL/min/1.73m2 CKD-EP I Creatinine Equation (2020) Laboratory - Chemistry and C hemistry - challengeOrdered By: Sven Aquino on 05-05-2025 AST [Catalytic activity/Vol] 23 U/L <32 [facility] Potassium measurement (mass/ volume)Ordered By: Sven Aquino on 05-05-2025 Potassium (Unsp spec) [Mass/Vol] 4.2 mmol/L 3.3-5.1 [facility] Serum creatinine measurement (mass/volume)Ordered By: Sven Aquino on 05-05-2025 Creatinine [Mass/Vol] 0.79 mg/dL 0.70-1.20 [facility] Serum globulin measurementOr dered By: Sven Aquino on 05-05-2025 Globulin (S) [Mass/Vol] 2.8 g/dL 2.2-4.2 [facility] Serum glucose measurement (m ass/volume)Ordered By: Sven Aquino on 05-05-2025 Glucose [Mass/Vol] 88 mg/dL 70-99 [facility] Serum or plasma alanine hoffman otransferase (ALT) measurementOrdered By: Sven Aquino on 05-05-2025 ALT [Catalytic activity/Vol] 35 U/L <35 [facility] Serum or plasma albumin francisco urement (mass/volume)Ordered By: Sven Aquino on 05-05-2025 Albumin [Mass/Vol] 4.1 g/dL 3.4-4.8 [facility] Serum or plasma albumin/glob ulin mass ratioOrdered By: Sven Aquino on 05-05-2025 Albumin/Globulin [Mass ratio] 1.5 {ratio} 0.9-2.4 [facility] Serum or plasma alkaline itzel sphatase measurementOrdered By: Sven Aquino on 05-05-2025 ALP [Catalytic activity/Vol] 58 U/L 35-104 [facility] Serum or plasma calcium francisco urement (mass/volume)Ordered By: Sven Aquino on 05-05-2025 Calcium [Mass/Vol] 9.0 mg/dL 7.6-11.0 [facility] Serum or plasma urea nitroge n measurement (mass/volume)Ordered By: Sven Aquino on 05-05-2025 Urea nitrogen [Mass/Vol] 12 mg/dL 4-19 [facility] Sodium levelOrdered By: Sven Aquino on 05-05-2025 Sodium [Moles/Vol] 141 mmol/L 133-145 [facility] Total proteinOrdered By: Joel Aquino on 05-05-2025 Protein [Mass/Vol] 6.9 g/dL 5.9-8.4 [facility] Vitamin D,25 Hydroxyon 05-05 Vitamin D 25-OH 53.8 ng/mL Normal 30-100 [facility] Comment on above: Order Comment: Order Date: 05/05/25 Order Info: 0786-1 - CMP Result Comment: Belia min D Status Deficiency: <20 ng/mL (50nmol/L) Insufficiency: 20-30 ng/mL (50-75 nmol/L) Sufficiency: 30-100 ng/mL (75-250 nmol/L) Toxicity: >100 ng/mL (>250 nmol/L) Performed By: #### L 506.1001 #### [facility] Laboratory [facility] [address] [place], [place], [address] CNOVon 06-01-2024 CNOV Office Visit (GENSWS) DEEPA FRAGOSO ([id number]) 1955 F Date Time Provider Department 06/01/24 2:00 PM MARCELLO POTTER During your visit today, we recorded the following information about you: Temperature Pulse Respiration Blood pressure 97.9 degrees 115/minute 18/minute 128/90 Weight Height Last Period 86.8 kg 1.575 m 02/15/07 Ashlyn Jensen, NATHEN 06/01/2024 2:03 PM Signed REVIEW OF SYSTEMS: [...] Neurologic: The patient denies a history of epilepsy/convulsions , denies headaches, denies head/spinal injuries, and denies [...] her thyroid gland which was completed at [facility] on 04/24/2024. This showed a 2.2 cm [...] resp. rate 18, height 157.5 cm (5' 2"), weight 86.8 kg (191 lb 6.4 oz), last menstrual period 02/15/2007, SpO2 95%. Neck is supple no hard palpable nodules are identified no carotid bruits no lymphadenopathy. Assessment:Multinodu lar goiter (primary encounter diagnosis) Plan: At this point I do not think any further fine-needle aspirations need to be done repeat thyroid ultrasounds would be sufficient. Referring Provider: SVEN AQUINO [[id number]] Allergies As of Date: 06/01/2024 Noted Allergy Reaction ERYTHROMYCIN 10/14/2015 8 - GI Upset Date Reviewed: 06/01/2024 Reviewed by: Ashlyn Jensen RN - Fully Assessed Reason for Visit: Thyroid Nodules [Other] Primary Visit Diagnosis:Multinodul ar goiter [E04.2] Prescriptions as of 06/03/2024 - famotidine (PEPCID) 40 mg tablet Take 40 mg by mouth daily at bedtime. - alendronate (FOSAMAX) 70 mg tablet Take 70 mg by mouth one time a week. In AM with cup of water on empty stomach. Nothing else by mouth and stay upright for 30 min. - calcium carbonate/vitamin D2 ([id number]-516-H ORAL) Take 1 tablet by mouth once daily. - cholecalciferol (VITAMIN D3) 1,000 unit tab tablet Take 1,000 Units by mouth once daily. Problem List As Of Date: 06/01/2024 (None) Visit Notes: (more content not included)... Normal [facility] [place] Basophil percentageOrdered B y: Sven Aquino on 10-29-2023 Bilirubin [Mass/Vol] 0.40 mg/dL 0.20-1.00 [facility] Comment on above: For patients on eltr ombopag therapy, use of Dimension Mccormick TBIL is not recommended. Chloride [Moles/Vol] 110 mmol/L 98-107 [facility] Glucose [Mass/Vol] 91 mg/dL 74-106 [facility] Potassium [Moles/Vol] 4.0 mmol/L 3.5-5.1 [facility] Protein [Mass/Vol] 7.1 g/dL 6.4-8.2 [facility] Sodium [Moles/Vol] 141 mmol/L 136-145 [facility] Laboratory - Chemistry and C hemistry - challengeOrdered By: Sven Aquino on 10-29-2023 Albumin/Globulin [Mass ratio] 1.0 {ratio} 0.9-2.4 [facility] ALP [Catalytic activity/Vol] 67 U/L 45-117 [facility] ALT [Catalytic activity/Vol] 24 U/L 13-56 [facility] CO2 [Moles/Vol] 26.0 mmol/L 21.0-32.0 [facility] Globulin (S) [Mass/Vol] 3.6 g/dL 2.2-4.2 [facility] Urea nitrogen/Creatinine [Mass ratio] 18.8 mg/mg 10-20 [facility] No Panel InformationOrdered By: Sven Aquino on 10-29-2023 Estimated GFR (MDRD) Amer 99 mL/min >60 [facility] Comment on above: GFR Calc Estimated GFR (MDRD) Non-Af Amer 82 mL/min >60 [facility] Comment on above: Non- GFR Calc Vitamin D 25-Hydroxy 54.3 ng/mL [facility] Comment on above: Vitamin D 25(OH) Sta tus Range Deficiency <20 ng/mL (50nmol/L) Insufficiency 20 - 30 ng/mL (50 - 75 nmol/L) Sufficiency 30 - 100 ng/mL (75 - 250 nmol/L) Toxicity >100 ng/mL (>250 nmol/L) Serum or plasma calcium francisco urement (mass/volume)Ordered By: Sven Aquino on 10-29-2023 Calcium [Mass/Vol] 9.0 mg/dL 8.5-10.1 [facility] Serum or plasma creatinine m easurement (mass/volume)Ordered By: Sven Aquino on 10-29-2023 Creatinine [Mass/Vol] 0.75 mg/dL 0.55-1.02 [facility] Comment on above: The validity of the calculated GFR & GFRAA in patients over 70 years has not been determined. Clinical correlation is essential. Serum or plasma urea nitroge n measurement (mass/volume)Ordered By: Sven Aquino on 10-29-2023 Urea nitrogen [Mass/Vol] 14 mg/dL 7-18 [facility] Thin prep Papanicolaou smear with manual screeningOrdered By: Sven Aquino on 10-29-2023 Thin prep Papanicolaou smear with manual screening 3.5 g/dL 3.2-5.0 [facility] Thin prep Papanicolaou smear with manual screening 17 U/L 15-37 [facility] Thin prep Papanicolaou smear with manual screening 5 5-15 [facility] Absolute lymphocyte countOrd ered By: Sven Aquino on 04-11-2023 Lymphocytes Auto (Unsp spec) [#/Vol] 1.28 10*3/uL 0.83-4.51 [facility] Basophil percentageOrdered B y: Sven Aquino on 04-11-2023 Basophils/100 WBC (Bld) 0.5 % 0-1 [facility] Bilirubin [Mass/Vol] 0.40 mg/dL 0.20-1.00 [facility] Comment on above: For patients on eltr ombopag therapy, use of Dimension Mccormick TBIL is not recommended. Chloride [Moles/Vol] 111 mmol/L 98-107 [facility] Cholesterol [Mass/Vol] 206 mg/dL <200 [facility] Comment on above: <200 mg/dL Desirable 200-240 mg/dL Borderline >240 mg/dL High Risk Eosinophils/100 WBC (Bld) 3.1 % 0-5 [facility] Glucose [Mass/Vol] 87 mg/dL 74-106 [facility] Neutrophils (Bld) [#/Vol] 2.1 10*3/uL 2.0-7.7 [facility] Neutrophils/100 WBC (Bld) 54.7 % 47-70 [facility] Potassium [Moles/Vol] 4.2 mmol/L 3.5-5.1 [facility] Protein [Mass/Vol] 7.4 g/dL 6.4-8.2 [facility] Sodium [Moles/Vol] 141 mmol/L 136-145 [facility] Triglyceride [Mass/Vol] 84 mg/dL <199 [facility] Comment on above: The drugs N-Acetylcy steine and Metamizole may falsely depress this assay.Serum Triglycerides Reference Interval Normal <150 mg/dL Borderline high 150 - 199 mg/dL High 200 - 499 mg/dL Very High > or = 500 mg/dL WBC (Bld) [#/Vol] 3.8 10*3/uL 4.4-11.0 [facility] Blood erythrocytes count (nu mber/volume)Ordered By: Sven Aquino on 04-11-2023 RBC (Bld) [#/Vol] 4.98 10*6/uL 4.2-5.4 [facility] Blood hemoglobin measurement (mass/volume)Ordered By: Sven Aquino on 04-11-2023 Hemoglobin (Bld) [Mass/Vol] 14.9 g/dL 12.0-15.0 [facility] Blood lymphocytes/100 leukoc ytesOrdered By: Sven Aquino on 04-11-2023 Lymphocytes/100 WBC (Bld) 33.5 % 19-41 [facility] Blood monocytes/100 leukocyt esOrdered By: Sven Aquino on 04-11-2023 Monocytes/100 WBC (Bld) 7.9 % 0-10 [facility] Blood platelet mean volumeOr dered By: Sven Aquino on 04-11-2023 Platelet mean volume (Bld) [Entitic vol] 8.9 fL 6.2-12.0 [facility] Determination of erythrocyte mean corpuscular volume (MCV)Ordered By: Sven Aquino on 04-11-2023 MCV (RBC) [Entitic vol] 92.6 fL 81-99 [facility] Hematocrit Auto (Bld) [Volum e fraction]Ordered By: Sven Aquino on 04-11-2023 Hematocrit (Bld) [Volume fraction] 46.1 % 37-47 [facility] Laboratory - Chemistry and C hemistry - challengeOrdered By: Sven Aquino on 04-11-2023 ALP [Catalytic activity/Vol] 83 U/L 45-117 [facility] ALT [Catalytic activity/Vol] 22 U/L 13-56 [facility] CO2 [Moles/Vol] 25.0 mmol/L 21.0-32.0 [facility] Free T4 [Mass/Vol] 1.13 ng/dL 0.76-1.46 [facility] Globulin (S) [Mass/Vol] 3.7 g/dL 2.2-4.2 [facility] Urea nitrogen/Creatinine [Mass ratio] 15.6 mg/mg 10-20 [facility] Laboratory - Hematology and Cell countsOrdered By: Sven Aquino on 04-11-2023 Erythrocyte distribution width (RBC) [Entitic vol] 45.9 fL 35.1-43.9 [facility] Erythrocyte distribution width (RBC) [Ratio] 13.4 % 11.6-14.6 [facility] Immature granulocytes/100 WBC (Bld) 0.300 % 0.0-0.9 [facility] Comment on above: IG% - Immature Granu locytes (promyelocytes, myelocytes and metamyelocytes) > 1% indicates that a LEFT SHIFT is Present. MCH (RBC) [Entitic mass] 29.9 pg 27.0-32.0 [facility] Nucleated RBC/100 WBC (Bld) [Ratio] 0 % 0-5 [facility] MCHC Auto (RBC) [Mass/Vol]Or dered By: Sven Aquino on 04-11-2023 MCHC (RBC) [Mass/Vol] 32.3 g/dL 32-36 [facility] No Panel InformationOrdered By: Sven Aquino on 04-11-2023 Estimated GFR (MDRD) Amer 97 mL/min >60 [facility] Comment on above: GFR Calc Estimated GFR (MDRD) Non-Af Amer 80 mL/min >60 [facility] Comment on above: Non- GFR Calc Thyroid Stimulating Hormone (TSH) 2.14 uIU/mL 0.358-3.74 [facility] Vitamin D 25-Hydroxy 50.0 ng/mL [facility] Comment on above: Vitamin D 25(OH) Sta tus Range Deficiency <20 ng/mL (50nmol/L) Insufficiency 20 - 30 ng/mL (50 - 75 nmol/L) Sufficiency 30 - 100 ng/mL (75 - 250 nmol/L) Toxicity >100 ng/mL (>250 nmol/L) Platelets bldOrdered By: Joel Aquino on 04-11-2023 Platelets (Bld) [#/Vol] 230 10*3/uL 150-450 [facility] Serum or plasma albumin francisco urement (mass/volume)Ordered By: Sven Aquino on 04-11-2023 Albumin [Mass/Vol] 3.7 g/dL 3.2-5.0 [facility] Serum or plasma albumin/glob ulin mass ratioOrdered By: Sven Aquino on 04-11-2023 Albumin/Globulin [Mass ratio] 1.0 {ratio} 0.9-2.4 [facility] Serum or plasma calcium francisco urement (mass/volume)Ordered By: Sven Aquino on 04-11-2023 Calcium [Mass/Vol] 8.9 mg/dL 8.5-10.1 [facility] Serum or plasma cholesterol in HDL measurement (mass/volume)Ordered By: Sven Aquino on 04-11-2023 Cholesterol in HDL [Mass/Vol] 73 mg/dL >40 [facility] Comment on above: The drugs N-Acetylcy steine and Metamizole may falsely depress this assay. Reference Range HDL <40 mg/dL Low HDL Cholesterol HDL >or= 60 mg/dL High HDL Cholesterol Serum or plasma cholesterol in VLDL measurement (mass/volume)Ordered By: Sven Aquino on 04-11-2023 Cholesterol in VLDL [Mass/Vol] 17 mg/dL 5-40 [facility] Serum or plasma creatinine m easurement (mass/volume)Ordered By: Sven Aquino on 04-11-2023 Creatinine [Mass/Vol] 0.77 mg/dL 0.55-1.02 [facility] Comment on above: The validity of the calculated GFR & GFRAA in patients over 70 years has not been determined. Clinical correlation is essential. Serum or plasma low density lipoprotein (LDL) cholesterol measurement (mass/volume)Ordered By: Sven Aquino on 04-11-2023 Cholesterol in LDL [Mass/Vol] 116 mg/dL 0-130 [facility] Serum or plasma urea nitroge n measurement (mass/volume)Ordered By: Sven Aquino on 04-11-2023 Urea nitrogen [Mass/Vol] 12 mg/dL 7-18 [facility] Thin prep Papanicolaou smear with manual screeningOrdered By: Sven Aquino on 04-11-2023 Thin prep Papanicolaou smear with manual screening 14 U/L 15-37 [facility] Thin prep Papanicolaou smear with manual screening 5 5-15 [facility] Basophil percentageon 2021 Chloride [Moles/Vol] 112 mmol/L 98-107 [facility] Work Phone: [phone] Glucose [Mass/Vol] 96 mg/dL 74-106 [facility] Work Phone: [phone] Potassium [Moles/Vol] 4.3 mmol/L 3.5-5.1 [facility] Work Phone: Sodium [Moles/Vol] 143 mmol/L 136-145 [facility] Work Phone: Laboratory - Chemistry and C hemistry - challengeon 02-15-2022 CO2 [Moles/Vol] 28.0 mmol/L 21.0-32.0 [facility] Work Phone: Urea nitrogen/Creatinine [Mass ratio] 13.7 mg/mg 10-20 [facility] Work Phone: No Panel Informationon 02-15 Estimated GFR (MDRD) Amer 92 mL/min >60 [facility] Work Phone: Comment on above: GFR Calc Estimated GFR (MDRD) Non-Af Amer 76 mL/min >60 [facility] Work Phone: Comment on above: Non- GFR Calc Serum or plasma calcium francisco urement (mass/volume)on 02-15-2022 Calcium [Mass/Vol] 9.2 mg/dL 8.5-10.1 [facility] Work Phone: Serum or plasma creatinine m easurement (mass/volume)on 02-15-2022 Creatinine [Mass/Vol] 0.80 mg/dL 0.55-1.02 [facility] Work Phone: Comment on above: The validity of the calculated GFR & GFRAA in patients over 70 years has not been determined. Clinical correlation is essential. Serum or plasma urea nitroge n measurement (mass/volume)on 02-15-2022 Urea nitrogen [Mass/Vol] 11 mg/dL 7-18 [facility] Work Phone: Thin prep Papanicolaou smear with manual screeningon 02-15-2022 Thin prep Papanicolaou smear with manual screening 3 5-15 [facility] Work Phone: Vital Signs Date Time Vital Sign Value Performing Clinician Le garcia 06-01-2024 13:54-0400 Body height 157.5 cm Marcello Potter MD Work Phone: [facility] 06-01-2024 13:54-0400 Body mass index (BMI) [Ratio] 35.01 kg/m2 Marcello Potter MD Work Phone: [facility] 06-01-2024 13:54-0400 Body temperature 97.9 [degF] Marcello Potter MD Work Phone: [facility] 06-01-2024 13:54-0400 Body weight 86.82 kg Marcello Potter MD Work Phone: [facility] 06-01-2024 13:54-0400 Diastolic blood pressure 90 mm[Hg] Marcello Potter MD Work Phone: [facility] 06-01-2024 13:54-0400 Heart rate 115 /min Marcello Potter MD Work Phone: [facility] 06-01-2024 13:54-0400 Respiratory rate 18 /min Marcello Potter MD Work Phone: [facility] 06-01-2024 13:54-0400 SaO2% (BldA) [Mass fraction] 95 % Marcello Potter MD Work Phone: [facility] 06-01-2024 13:54-0400 Systolic blood pressure 128 mm[Hg] Marcello Potter MD Work Phone: [facility] Encounters Encounter Date Encounter Type Care Provider Facility Start: 06-15-2025 ambulatory Sven Aquino [facility] y:[facility] Start: 05-10-2025 End: 05-10-[address] Sven Aquino MD Work Phone: -Ultrasound [facility] Start: 05-10-2025 End: 05-10-[address] Sven Aquino MD -Ultrasound [facility] Work Phone: Start: 05-10-2025 End: 05-10-2025 ambulatory Sven Aquino Facility:[facility] Start: 05-05-2025 End: 05-05-[address] Sven Aquino MD Work Phone: -Laboratory [facility] Start: 05-05-2025 End: 05-05-[address] Sven Aquino MD -Laboratory [facility] Start: 05-05-2025 End: 05-05-2025 ambulatory Sven Aquino Facility:[facility] Start: 06-01-2024 End: 06-01-2024 ambulatory MARCELLO POTTER Facility:[facility] Start: 06-01-2024 End: 06-01-2024 Patient encounter procedure Marcello Potter MD Work Phone: General Surgery Comment on above: Multinodular goiter (Primary Dx) Start: 10-29-2023 End: 10-29-2023 ambulatory [facility] Work Phone: Start: 10-29-2023 End: 10-29-2023 [facility] Start: 05-07-2023 End: 05-07-2023 ambulatory [facility] Work Phone: Start: 05-07-2023 End: 05-07-2023 Patient encounter procedure [facility]-Laboratory, Specimen Work Phone: Start: 04-25-2023 End: 04-25-2023 ambulatory [facility] Work Phone: Start: 04-25-2023 End: 04-25-2023 Patient encounter procedure [facility]-Outpatient Bone Densitometry Work Phone: Start: 04-18-2023 End: 04-18-2023 ambulatory [facility] Work Phone: Start: 04-18-2023 End: 04-18-2023 Patient encounter procedure [facility]-Ultrasound, [facility] Work Phone: Start: 04-11-2023 End: 04-11-2023 [facility] Start: 03-09-2022 End: 03-09-2022 Patient encounter procedure [facility]-Outpatient Breast Imaging Start: 02-15-2022 End: 02-15-2022 Patient encounter procedure [facility]-Laboratory, [place] [facility] Procedures Date Procedure Procedure Detail Performing Clinician Start: 05-10-2025 US scan of thyroid Dr. Sven Aquino MD Work Phone: Start: 05-05-2025 Vitamin D, 25-hydrox y measurement Dr. Sven Aquino MD Work Phone: Comment on above: Vitamin D StatusDefi ciency: <20 ng/mL (50nmol/L)Insufficiency: 20-30 ng/mL (50-75 nmol/L)Sufficiency: 30-100 ng/mL (75-250 nmol/L)Toxicity: >100 ng/mL (>250 nmol/L) Start: 04-25-2023 Dual energy X-ray absorptiometry Start: 04-25-2023 Screening mammography Start: 04-18-2023 US scan of thyroid Start: 03-09-2022 Screening mammography Start: 10-17-2015 Colonoscopy Marcello wang MD Work Phone: Plan of Treatment Date Care Activity Detail Author Start: 02-09-2031 Urine microalbumin profile DTa P,Tdap,Td Vaccine (2 - Td or Tdap) [facility] Start: 10-16-2025 Screening for malign ant neoplasm of colon [facility] Start: 08-12-2023 Advance Directive Discussion Advance Directive Discussion [facility] Start: 11-09-2020 Screening for osteoporosis Bone Dens ity Screening [facility] Start: 11-09-2005 Shingrix Vaccine (1 of 2) Whitman grix Vaccine (1 of 2) [facility] Start: 11-09-2000 Diabetes Screening Diabetes Screenin g [facility] Start: 11-09-2000 Lipid panel Lipid Screening [facility] Start: 11-09-2000 Screening for malign ant neoplasm of colon [facility] Start: 1995 Screening for malign ant neoplasm of breast Mammogram Screening [facility] Start: 11-09-1973 Anxiety Screening Anxiety Screening [facility] Start: 11-09-1973 Depression Screening Depression Scre ening [facility] Start: 11-09-1973 Hepatitis C screening Hepatitis C Sc oliverio [facility] Immunizations Immunization Date Immunization Notes Care Provider Fa segun 05-15-2022 COVID-19 vaccine, ag e 12+ yr, bivalent ([employer] Marcello Potter MD Work Phone: [facility] 07-18-2021 COVID-19 original vaccine, full dose, monovalent (MODERNA) Marcello Potter MD Work Phone: [facility] 11-23-2020 COVID-19 original vaccine, full dose, monovalent (MODERNA) Marcello Potter MD Work Phone: [facility] 10-26-2020 COVID-19 original vaccine, full dose, monovalent (MODERNA) Marcello Potter MD Work Phone: [facility] Payers Date Payer Category Payer Self-pay [id number] 2022 Private Health Insurance [facility] AARP SUPPLEMENT [id number] 2022-Present [phone] [address] [place] [address] Indemnity [id number] 2022 Unknown [id number] 2020 Medicare MEDICARE MEDICAR E A AND B [id number] 2020-Present [phone] [place] [address] Medicare [id number] 2020 Medicare [id number] Unknown [id number] Unknown [id number] Unknown [id number] Social History Date Type Detail Facility Tobacco smoking stat NHIS Unknown if ever smoked [facility] Work Phone: Start: 1955 Sex Assigned At Female [facility] Start: 05-29-2024 Tobacco smoking stat NHIS Never smoked tobacco [facility] Start: 05-29-2024 Tobacco use and exposure Smokeless tobacco non-user [facility] Start: 06-01-2024 Alcoholic beverage intake Ex-drinker (finding) [facility] Start: 05-02-2023 End: 06-01-2024 History of Social function [facility] Start: 05-02-2023 End: 06-01-2024 Tobacco use panel [facility] National Score (1-10 0), lower number is lower risk 71 [facility] Start: 05-02-2023 [facility] Start: 04-25-2023 Gender identity Identifies as female gender (finding) [facility] Start: 04-25-2023 Sexual orientation Heterosexual (fin ding) [facility] Work Phone: Radiology Diagnostic study note 05-12-2025 Note Date & Type Note Facility 05-12-2025 Radiology Diagnostic study note [facility] Imaging Services [address] [place], [place] [address] Thyroid MR#: [id number] Acct: [id number] Name: DEEPA FRAGOSO Rep #: [id number] F 69 From: Dinesh La MD PCP: Dr. Sven Aquino MD Status: RE G CLI Study:Thyroid Date of Exam: 05/10/25 Exam# [id number] Ordering Dr: Sven Aquino MD PROCEDURE: THYROID 05/10/2025 REASON FOR EXAM: Known nodules, follow-up TECHNIQUE: Procedure Code: USTHY Modality: US Procedure: THYROID COMPARISON: 04/24/2024, 04/18/2023 FINDINGS: Right thyroid lobe size: 4.1 x 2.1 x 1.8 cm Left thyroid lobe size: 4.1 x 1.5 x 1.1 cm Isthmus: 0.1 cm Background parenchymal echotexture is homogeneous. Nodules: 1. Lobe: Right, Location: Mid, Size: 2.3 x 1.9 x 1.4 cm, Stability: Stable Composition: Solid or almost completely solid (+2) Echogenicity: Hypoechoic (+2) Margin: Smooth (+0) Shape: Wider than tall (+0) Echogenic Foci: None (+0) TI-RADS: <2 = TR 1 * 2 = TR 2 * 3 = TR 3 * 4-6 = TR 4 * >6 = TR 5 2. Lobe: Right, Location: Lower, Size: 0.4 x 0.5 x 0.4 cm, Stability: Stable Composition: Cystic or mostly cystic (+0) Echogenicity: Anechoic (+0) Margin: Smooth (+0) Shape: Wider than tall (+0) Echogenic Foci: None (+0) TI-RADS: <2 = TR 1 * 2 = TR 2 * 3 = TR 3 * 4-6 = TR 4 * >6 = TR 5 3. Lobe: Left, Location: Upper, Size: 0.6 x 0.4 x 0.4 cm, Stability: Stable Composition: Mixed cystic and solid (+1) Echogenicity: Anechoic (+0) Margin: Smooth (+0) Shape: Wider than tall (+0) Echogenic Foci: None (+0) TI-RADS: <2 = TR 1 * 2 = TR 2 * 3 = TR 3 * 4-6 = TR 4 * >6 = TR 5 4. Lobe: Left, Location: Mid, Size: 0.8 x 0.5 x 0.7 cm, Stability: Stable Composition: Mixed cystic and solid (+1) Echogenicity: Hypoechoic (+2) Margin: Smooth (+0) Shape: Wider than tall (+0) Echogenic Foci: None (+0) TI-RADS: <2 = TR 1 * 2 = TR 2 * 3 = TR 3 * 4-6 = TR 4 * >6 = TR 5 5. Lobe: Left, Location: Lower, Size: 0.6 x 0.4 x 0.5 cm, Stability: Stable Composition: Mixed cystic and solid (+1) Echogenicity: Hypoechoic (+2) Margin: Smooth (+0) Shape: Wider than tall (+0) Echogenic Foci: None (+0) TI-RADS: <2 = TR 1 * 2 = TR 2 * 3 = TR 3 * 4-6 = TR 4 * >6 = TR 5 No new suspicious mass or nodule, no suspicious adenopathy US/Thyroid IMPRESSION: Stable homogeneous thyroid gland with bilateral nodules. Largest is solid, hypoechoic and in the mid right lobe which should undergo FNA unless previously performed. Remaining nodules are predominantly solid and cystic an unchanged. These can befollowed sonographically RECOMMENDATION: Based on most suspicious nodule. Nodule size = largest diameter Only evaluate nodule if =>5 mm. Growth > 20% in 2 dimensions = worsening. Follow up to 4 nodules. Recommend biopsy for no more than 2 nodules. Reading Location: [id number] CC: Dr. Sven Aquino MD ~ Shift Lab Technician: Signed [facility] Progress note 06-03-2024 Note Date & Type Note Facility 06-03-2024 Note HNO ID: [id number] Author: MARCELLO POTTER MD Service: ? Author Type: Physician Type: [...] her thyroid gland which was completed at [facility] on 04/24/2024. This showed a 2.2 cm [...] resp. rate 18, height 157.5 cm (5' 2"), weight 86.8 kg (191 lb 6.4 oz), last menstrual period 02/15/2007, SpO2 95%. Neck is supple no hard palpable nodules are identified no carotid bruits no lymphadenopathy. Assessment:Multinodular goiter (primary encounter diagnosis) Plan: At this point I do not think any further fine-needle aspirations need to be done repeat thyroid ultrasounds would be sufficient. [facility] History of Present illness Narrative 06-03-2024 Marcello Potter MD - 06/03/2024 12:42 PM EDT Note Date & Type Note Facility 06-03-2024 History of Presen t illness Narrative Subjective: Last saw the patient on 05/14/2023. She had just undergone a fine-needle aspiration of both the left and right side thyroid nodules which were completed on 05/07/2023. The pathology report came back as a benign follicular nodule and was adequate for evaluation. She presents again today with a repeat ultrasound of her thyroid gland which was completed at [facility] on 04/24/2024. This showed a 2.2 cm [...] Objective:Blood pressure 128/90, pulse 115, temperature 36.6 C (97.9 F), resp. rate 18, height 157.5 cm (5' 2"), weight 86.8 kg (191 lb 6.4 oz), last menstrual period 02/15/2007, SpO2 95%. Neck is supple no hard palpable nodules are identified no carotid bruits no lymphadenopathy. Assessment:Multinodular goiter (primary encounter diagnosis) Plan: At this point I do not think any further fine-needle aspirations need to be done repeat thyroid ultrasounds would be sufficient. documented in this encounter [facility] Nurse Note 06-01-2024 Ashlyn Jensen RN - 06/01/2024 2:02 PM EDT Note Date & Type Note Facility 06-01-2024 Nurse Note REVIEW OF SYSTEMS: General: The patient denies [...] 2022 Last Colonoscopy: 2015 Ashlyn Jensen RN [facility] Nurse Note 06-01-2024 Ashlyn Jensen RN - 06/01/2024 2:02 PM EDT Note Date & Type Note Facility 06-01-2024 Nurse Note REVIEW OF SYSTEMS: General: The patient denies [...] 2022 Last Colonoscopy: 2015 Ashlyn Jensen RN documented in this encounter [facility] Evaluation note Note Date & Type Note Facility Evaluation note No assessment information availa ble [facility] Work Phone: Evaluation note Note Date & Type Note Facility Evaluation note Diagnosis Multinodular goiter- Primary Nontoxic multinodular goiter documented in this encounter [facility] Reason for referral (narrative) Note Date & Type Note Facility Reason for referral (narrative) No reason for referral information available [facility] Work Phone: Chief Complaint and Reason for Visit Chief Complaint SCREENING Chief Complaint E ORDER THYROID NODULE Chief Complaint E ORDER THYROID NODULE MENOPAUSAL, SCREENING Chief Complaint E ORDER THYROID NODULE MENOPAUSAL, SCREENING ABNORMAL ULTRASOUND-ASPIRATION OF LEFT AND RIGHT Chief Complaint Admit Date nodule May 10, 2025 12:40pm Summary Purpose Family History No Family History Records FoundNo Family History Records Found Advance Directives No Advanced Directives Records FoundNo Advanced Directives Records Found Additional Source Comments Goals (unrecognized section and content) Goals may be documented in a n alternate sectionGoals may be documented in an alternate sectionGoals may be documented in an alternate sectionGoals may be documented in an alternate sectionGoals may be documented in an alternate sectionGoals may be documented in an alternate sectionGoals may be documented in an alternate section Care Teams (unrecognized sec tion and content) Team Status: Active Member Role Status Dates Dr. Sven Martin MD Family Provider Active Dr. Sven Aquino MD Primary Care Provider Active Team Status: Inactive Member Role Status Dates Dr. Sven Aquino MD Primary Care Pr ovider, Attending Provider, Referring Provider Active Team Status: Inactive Member Role Status Dates Dr. Sven Aquino MD Primary Care Provider, Attend ing Provider Active Team Status: Inactive Member Role Status Dates Dr. Sven Aquino MD Primary Care Provider Active Dr. Marcello Potter MD Attending Provider, Referring Provider Active [employer] Relationship Specialty Start Date End Date Sven Aquino MD [address] [place] [address] PCP - General Family Medicine 04/30/23 Team Status: Active Member Role/Relationship Status Dates Dr. Sven Aquino MD Primary care physician Active Team Status: Inactive Member Role/Relationship Status Dates Dr. Sven Aquino MD Primary care physician Active Start: May 05, 2025 End: May 05, 2025 Dr. Sven Aquino MD Attending physician Active Start: May 05, 2025 End: May 05, 2025 Team Status: Active Member Role/Relationship Status Dates Dr. Sven Aquino MD Primary care physician Active Start: May 10, 2025 Dr. Sven Aquino MD Attending physician Active Start: May 10, 2025 Dr. Sven Aquino MD Referring Provider Active Start: May 10, 2025 Team Status: Inactive Member Role/Relationship Status Dates Dr. Sven Aquino MD Primary care physician Active Start: May 10, 2025 End: May 10, 2025 Dr. Sven Aquino MD Attending physician Active Start: May 10, 2025 End: May 10, 2025 Dr. Sven Aquino MD Referring Provider Active Start: May 10, 2025 End: May 10, 2025 Source Comments (unrecognize d section and content) In the event this informatio n is protected by the Federal Confidentiality of Alcohol and Drug Abuse Patient Records regulations: The Federal rules restrict any use of the information to criminally investigate or prosecute any alcohol or drug abuse patient.[facility] Reason for Visit (unrecogniz ed section and content) Reason Comments Thyroid Nodules INFORMATION SOURCE (unrecogn ized section and content) DATE CREATED AUTHOR 06/05/2024 [facility] DATE CREATED AUTHOR AUTHOR'S DAHLIA ANDERSEN 06/12/2025 [facility] FOR RECORDS PERTAINING TO PATIENTS WHO ARE OR HAVE BEEN ENROLLED IN A CHEMICAL DEPENDENCY/SUBSTANCEABUSE PROGRAM, SOME INFORMATION MAY BE OMITTED. This clinical summary was aggregated from multiple sources. Caution should be exercised in using it in the provision of clinical care. This summary normalizes information from multiple sources, and as a consequence, information in this document may materially change the coding, format and clinical context of patient data. In addition, data may be omitted in some cases. CLINICAL DECISIONS SHOULD BE BASED ON THE PRIMARY CLINICAL RECORDS. [employer] provides no warranty or guarantee of the accuracy or completeness of information in this document.
== END | disposition home or self-care (01) ==
PROVIDERS: PCP Family Medicine; Referring Provider Family Medicine; Visit Provider Family Medicine
DX: Z12.31 Encounter for screening mammogram for malignant neoplasm of breast (principal); M81.0 Age-related osteoporosis without current pathological fracture
CPT/HCPCS: 77063; 77067; 77080